=== PATIENT | male | born 1990 | race Two or more races ===

== ENCOUNTER 2020-11-01 11:21 | Emergency (ER) | payer OTHER ==
[~2020-11-01] VITALS: Ht 170.2 cm; Wt 77.9 kg
[2020-11-01 11:35] VITALS: BP 142/88
[2020-11-01] MEDS ORDERED: ketorolac trometh inj. 60 MG/2 ML VIAL IM ONE (12:00)
[2020-11-01] MEDS ORDERED: CYCL-1 PO (12:13)
== END 2020-11-01 12:32 | disposition home or self-care (01) ==
LOC: ER 11:25
DX: S39.012A Strain of muscle, fascia and tendon of lower back, initial encounter (principal); M62.830 Muscle spasm of back; X58.XXXA Exposure to other specified factors, initial encounter; Y93.89 Activity, other specified; Y92.89 Other specified places as the place of occurrence of the external cause; Y99.8 Other external cause status
CPT/HCPCS: 96372; 99283; J1885

== ENCOUNTER 2020-11-05 10:06 | Emergency (ER) | payer OTHER ==
[~2020-11-05] VITALS: Ht 170.2 cm; Wt 71.0 kg
[~2020-11-05 10:06] MED LIST: CYCL-1 PO
[2020-11-05 10:42] VITALS: BP 153/94
== END 2020-11-05 13:25 | disposition home or self-care (01) ==
LOC: ER 10:06
DX: M71.331 Other bursal cyst, right wrist (principal); R05 Cough; Z79.899 Other long term (current) drug therapy
CPT/HCPCS: 73110; 99283

== ENCOUNTER 2021-04-01 08:56 | Emergency (ER) | payer OTHER ==
[~2021-04-01] VITALS: Ht 170.2 cm; Wt 74.1 kg
[2021-04-01 09:13] VITALS: BP 144/75
== END 2021-04-01 10:01 | disposition home or self-care (01) ==
LOC: ER 08:57
DX: S93.402A Sprain of unspecified ligament of left ankle, initial encounter (principal); Z79.899 Other long term (current) drug therapy; W19.XXXA Unspecified fall, initial encounter; Y93.51 Activity, roller skating (inline) and skateboarding; Y92.89 Other specified places as the place of occurrence of the external cause; Y99.8 Other external cause status
CPT/HCPCS: 73610; 99283